=== PATIENT | female | born 1980 | race Caucasian/White ===

== ENCOUNTER 2017-12-15 11:30 | Emergency (ER) | payer BC, OTHER ==
--- NOTE | 2017-12-15 12:34 | EDM.PDOC ---
ED HPI GENERAL MEDICAL PROBLEM - General Chief Complaint: Upper Extremity Injury/Pain Stated Complaint: HURT RT WRIST Time Seen by Provider: 12/15/17 12:25 Source of Information: Reports: Patient History Limitations: Reports: No Limitations - History of Present Illness INITIAL COMMENTS - FREE TEXT/NARRATIVE: 37 yo female fell last night and injured her R wrist. Reports pain mostly to the lateral side. Here now for eval. 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 (see below) (none) Right Wrist Pain Score (Numeric/FACES): 3 - Related Data Allergies Allergy/AdvReac Type Severity Reaction Status Date / Time amoxicillin Allergy Rash Verified 12/15/17 11:49 Home Meds: Home Meds Citalopram Hydrobromide [Celexa] 10 mg PO DAILY 12/15/17 [History] Olopatadine [Patanol 0.1% Ophth Soln] 1 drop TOP BID 12/15/17 [History] Past Medical History HEENT History: Reports: Other (See Below) Other HEENT History: dry eye [employer]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: Psychiatric History: Reports: Anxiety - Past Surgical History Musculoskeletal Surgical History: Reports: Other (See Below) Other Musculoskeletal Surgeries/Procedures:: Right hip repair Social & Family History - Tobacco Use Smoking Status *Q: Never Smoker - Caffeine Use Caffeine Use: Reports: Coffee - Recreational Drug Use Recreational Drug Use: No Review of Systems - Review of Systems Review Of Systems: See Below Constitutional: Reports: No Symptoms Musculoskeletal: Reports: Joint Pain (R wrist) Skin: Reports: No Symptoms Neurological: Reports: No Symptoms ED EXAM, GENERAL - Physical Exam Exam: See Below Exam Limited By: No Limitations General Appearance: Alert, WD/WN, No Apparent Distress Extremities: Normal Inspection, No Pedal Edema, Limited Range of Motion. No: Normal Range of Motion, Pedal Edema, Joint Swelling, Increased Warmth, Mottled, Pallor, Redness Neurological: Alert, Oriented, CN II-XII Intact, Normal Cognition, No Motor/ Sensory Deficits Psychiatric: Normal Affect, Normal Mood Skin Exam: Warm, Dry, Intact, Normal Color, No Rash Course - Vital Signs Text/Narrative:: Wrist splint applied. Last Recorded V/S: Last Vital Signs Temp 35.6 C 12/15/17 11:59 Pulse 73 12/15/17 11:59 Resp 16 12/15/17 11:59 BP 142/86 H 12/15/17 11:59 Pulse Ox 99 12/15/17 11:59 - Orders/Labs/Meds Orders: Active Orders 24 hr Category Date Time Status Wrist Comp Min 3V Rt [CR] Stat Exams 12/15/17 12:31 Ordered - Radiology Interpretation Free Text/Narrative:: R wrist [id number] Departure - Departure Time of Disposition: 12:50 Disposition: Home, Self-Care 01 Condition: Good Clinical Impression: Sprain of wrist, right Qualifiers: Encounter type: initial encounter Qualified Code(s): S63.501A - Unspecified sprain of right wrist, initial encounter - Discharge Information Referrals: PCP,None [Primary Care Provider] - Forms: ED Department Discharge - My Orders Last 24 Hours: My Active Orders 12/15/17 12:31 Wrist Comp Min 3V Rt [CR] Stat - Assessment/Plan Last 24 Hours: My Active Orders 12/15/17 12:31 Wrist Comp Min 3V Rt [CR] Stat
--- NOTE | 2017-12-17 10:47 | CR ---
No fracture or dislocation.
== END 2017-12-15 12:58 | disposition home or self-care (01) ==
LOC: JP.ED 11:30
DX: S63.501A Unspecified sprain of right wrist, initial encounter (principal); F41.9 Anxiety disorder, unspecified; Z79.899 Other long term (current) drug therapy; Z88.1 Allergy status to other antibiotic agents; W19.XXXA Unspecified fall, initial encounter
CPT/HCPCS: 73110-26-RT; 73110-RT; 99284